=== PATIENT | female | born 1985 | race Caucasian/White ===

== ENCOUNTER 2023-08-12 11:49 | Day surgery (SDC) | payer OTHER ==
[2023-08-12 12:21] VITALS: BMI 36.2
[2023-08-12] MEDS ORDERED: hydrALAZINE 20 MG/ML VIAL SLOW IVP PRN (12:59)
[2023-08-12] MEDS ORDERED: Lactated Ringer's 1,000 ML IV SCH (13:00)
[2023-08-12] MEDS ORDERED: Ondansetron PF 4 MG/2 ML Vial IVP SCH (13:15)
[2023-08-12 13:47] LABS: Bilirubin Neg (Negative); Blood, Urine Negative (Negative); Clarity Clear (Clear); Glucose, Urine (Dipstick) Normal (Negative); Ketone, Urine Negative (Negative); Leukocyte Negative (Negative); Nitrite Negative (Negative); Protein, Urine (Dipstick) 15 mg/dl (Neg-Trace); Specific Gravity, Urine 1.015 (1.005-1.030); Urobilinogen Normal mg/dL (Less than 2)
[2023-08-12 13:59] LABS: Bacteria/HPF 3+ HPF (None Seen); CAUTI Indications for Culture Pregnancy; RBC/HPF 0-3 HPF (0-3); Sperm/HPF Rare HPF (None Seen)
[2023-08-12 14:03] LABS: Urine Culture Reflex Yes Yes
[2023-08-12 14:09] LABS: #Basophils 0.1 10x3/uL (0.0-0.2); #Eosinphils 0.2 10x3/uL (0.0-0.5); #Monocytes 0.5 10x3/uL (0.0-1.1); #Neutrophils 12.7 10x3/uL (1.5-8.4); %Basophils 0.4 % (0.0-2.0); %Lymphocytes 15.9 % (18.0-47.0); %Monocytes 3.2 % (0.0-10.0); %Neutrophils 78.4 % (40.0-75.0); Hematocrit 39.2 % (34.9-44.5); Hemoglobin 13.1 g/dL (12.0-15.5); Mean Corpuscular HGB CONC 33.4 g/dL (32.0-36.0); Mean Corpuscular Volume 92.9 fl (81.6-98.3); Mean Platelet Volume 10.2 fl (7.4-10.4); Platelet Count 291 10x3/uL (150-450); RBC Distribution Width 13.2 % (11.5-14.5); Red Blood Cell (RBC) Count 4.22 10x6/uL (3.90-5.03); White Blood Cell (WBC) Count 16.1 10x3/uL (3.5-10.5)
[2023-08-12 14:16] LABS: ALT (SGPT) 10 U/L (8-55); AST (SGOT) 14 U/L (5-34); Albumin 3.3 g/dL (3.5-5.0); Alkaline Phosphatase 96 U/L (40-110); Anion Gap 13 mmol/L (10-20); BUN (Urea Nitrogen) 9 mg/dL (7.0-18.7); Bilirubin, Total 0.4 mg/dL (0.2-1.2); Calc. Creatinine Clearance 200 mL/min (70-130); Calcium 8.6 mg/dL (7.8-10.44); Carbon Dioxide 19 mmol/L (22-29); Chloride 105 mmol/L (98-107); Estimated GFR 110; Glucose 95 mg/dL (70-105); Potassium 3.6 mmol/L (3.5-5.1); Protein, Total 6.3 g/dL (6.0-8.3); Sodium 133 mmol/L (136-145)
== END 2023-08-12 17:01 | disposition home or self-care (01) ==
LOC: CSHLD/OP 11:49
PROVIDERS: ATTEND Obstetrics & Gynecology
DX: O99.353 Diseases of the nervous system complicating pregnancy, third trimester (principal); R42 Dizziness and giddiness; O21.2 Late vomiting of pregnancy; Z3A.34 34 weeks gestation of pregnancy; Z88.0 Allergy status to penicillin
CPT/HCPCS: 36415; 76819; 80053; 81001; 85025; 87086; J2405

== ENCOUNTER 2023-08-16 10:53 | Day surgery (SDC) | payer OTHER ==
[2023-08-16 12:25] VITALS: BMI 34.8
== END 2023-08-16 13:05 | disposition home or self-care (01) ==
LOC: CSHERS 10:53 → CSHLD/OP 11:57
PROVIDERS: ATTEND Obstetrics & Gynecology
DX: O47.03 False labor before 37 completed weeks of gestation, third trimester (principal); Z3A.35 35 weeks gestation of pregnancy; Z88.0 Allergy status to penicillin
CPT/HCPCS: 93005; 99282

== ENCOUNTER 2023-09-13 11:20 | Inpatient (IN) | payer OTHER ==
[2023-09-13 12:01] VITALS: BMI 33.9
[2023-09-13 12:31] LABS: Fetal Membranes Rupture No Membranes Rupture (No Rupture)
[2023-09-13] MEDS ORDERED: hydrALAZINE 20 MG/ML VIAL SLOW IVP PRN ×2 (13:42→21:04)
[2023-09-13] MEDS ORDERED: Bicitra 30 ML UDCUP PO PRN (13:42)
[2023-09-13] MEDS ORDERED: Ondansetron PF 4 MG/2 ML Vial IVP PRN ×4 (13:42→21:04)
[2023-09-13] MEDS ORDERED: Famotidine/PF 20 mg/2ml Vial SLOW IVP PRN (13:42)
[2023-09-13] MEDS ORDERED: Promethazine HCl 25 MG/ML VIAL IM PRN ×2 (13:42→16:33)
[2023-09-13] MEDS ORDERED: Oxytocin 30 units/NS 500 ML 500 ML IV SCH (13:45)
[2023-09-13] MEDS ORDERED: Lactated Ringer's 1,000 ML IV SCH (13:45)
[2023-09-13] MEDS ORDERED: SODIUM CHLORIDE IVPB SCH (14:00)
[2023-09-13] MEDS ORDERED: Clindamycin/D5W 900 MG in Premix 1 BAG IVPB SCH (14:00)
[2023-09-13] MEDS ORDERED: GENTAMICIN IVPB SCH (14:00)
[2023-09-13] MEDS ORDERED: ADMIXTURE FEE IVPB SCH (14:00)
[2023-09-13 14:12] LABS: Hematocrit 42.3 % (34.9-44.5); Hemoglobin 14.6 g/dL (12.0-15.5); Mean Corpuscular HGB CONC 34.5 g/dL (32.0-36.0); Mean Corpuscular Hemoglobin 31.5 pg (27.0-33.0); Mean Corpuscular Volume 91.4 fl (81.6-98.3); Mean Platelet Volume 11.1 fl (7.4-10.4); Platelet Count 293 10x3/uL (150-450); RBC Distribution Width 12.7 % (11.5-14.5); Red Blood Cell (RBC) Count 4.63 10x6/uL (3.90-5.03); White Blood Cell (WBC) Count 14.1 10x3/uL (3.5-10.5)
[2023-09-13 14:34] LABS: Syphilis Antibody Nonreactive (Nonreactive); Syphilis Antibody Index 0.09 S/CO (<1.00 Non-Reactive)
[2023-09-13 14:35] LABS: HBSAg Index 0.19 S/CO (0-0.99); Hep B Surf Ag - L&D Non-Reactive S/CO (NonReactive)
[2023-09-13] MEDS ORDERED: Ondansetron PF 4 MG/2 ML Vial ONE (14:36)
[2023-09-13] MEDS ORDERED: Morphine PF 10 MG/10 ML VIAL ONE (14:36)
[2023-09-13] MEDS ORDERED: Oxytocin 10 UNITS/ML VIAL ONE ×2 (14:36→15:08)
[2023-09-13] MEDS ORDERED: fentaNYL 50 mcg/mL 1 mL Vial ONE (14:37)
[2023-09-13] MEDS ORDERED: PHENYLEPHRINE-NS 100 MCG/ML 10 ML SYRINGE ONE (15:04)
[2023-09-13] MEDS ORDERED: Phenylephrine 10 MG/ML VIAL ONE (15:29)
[2023-09-13] MEDS ORDERED: Erythromycin Base 0.5% Oint 1 GM TUBE ONE (15:37)
[2023-09-13] MEDS ORDERED: Phytonadione Neonatal 1 MG/0.5 ML AMP ONE (15:37)
[2023-09-13] MEDS ORDERED: Hepatitis B Vaccine 10 MCG/0.5 ML SYR ONE (15:37)
[2023-09-13] MEDS ORDERED: diphenhydrAMINE 50 MG/ML VIAL IVP PRN (16:33)
[2023-09-13] MEDS ORDERED: Meperidine HCl/PF 25 MG/ML VIAL SLOW IVP PRN (16:33)
[2023-09-13] MEDS ORDERED: Naloxone HCl 0.4 mg/ml Vial IV PRN (16:33)
[2023-09-13] MEDS ORDERED: Promethazine HCl 25 MG SUPP PR PRN (16:33)
[2023-09-13] MEDS ORDERED: Moisturizing Cream (Eucerin) 113 GM JAR TOP PRN (16:33)
[2023-09-13] MEDS ORDERED: Naloxone HCl 0.4 mg/ml Vial IVP PRN ×2 (16:33)
[2023-09-13] MEDS ORDERED: fentaNYL 50 mcg/mL 1 mL Vial SLOW IVP PRN (16:33)
[2023-09-13] MEDS ORDERED: Ketorolac Tromethamine 30 MG/ML VIAL IVP SCH (16:45)
[2023-09-13] MEDS ORDERED: Communication Order-Pharmacy FS SCH (16:45)
[2023-09-13] MEDS: Ketorolac Tromethamine 30 MG/ML VIAL IVP PRN (17:42)
[2023-09-13] MEDS ORDERED: levETIRAcetam 500 MG TAB PO SCH (18:00)
[2023-09-13] MEDS ORDERED: Lacosamide 50 mg Tablet PO SCH (21:00)
[2023-09-13] MEDS ORDERED: Boostrix 0.5 ML (Tdap) VIAL (>/=7 yrs of age) IM ONE (21:04)
[2023-09-13] MEDS ORDERED: Bisacodyl 10 MG SUPP PR PRN (21:04)
[2023-09-13] MEDS ORDERED: Simethicone Chewable 80 MG TAB PO PRN (21:04)
[2023-09-13] MEDS ORDERED: Lanolin Ointment 7 GM TUBE TOP PRN (21:04)
[2023-09-13] MEDS ORDERED: diphenhydrAMINE 25 MG CAP PO PRN (21:04)
[2023-09-13] MEDS ORDERED: Ferrous Sulfate 325 MG TAB PO SCH (21:15)
[2023-09-13] MEDS ORDERED: Docusate 100 MG CAP PO SCH (21:15)
[2023-09-14] MEDS: Ketorolac Tromethamine 30 MG/ML VIAL IVP PRN ×3 (01:12→13:23)
[2023-09-14 04:31] LABS: Hematocrit 32.2 % (34.9-44.5); Hemoglobin 11.1 g/dL (12.0-15.5); Mean Corpuscular HGB CONC 34.5 g/dL (32.0-36.0); Mean Corpuscular Volume 92.8 fl (81.6-98.3); Mean Platelet Volume 10.9 fl (7.4-10.4); Platelet Count 230 10x3/uL (150-450); RBC Distribution Width 12.6 % (11.5-14.5); Red Blood Cell (RBC) Count 3.47 10x6/uL (3.90-5.03); White Blood Cell (WBC) Count 14.6 10x3/uL (3.5-10.5)
[2023-09-14] MEDS ORDERED: HYDROcodone/Acetaminophen 5/325 mg Tablet PO PRN (04:45)
[2023-09-14] MEDS: Ferrous Sulfate 325 MG TAB PO SCH ×2 (07:41→20:30)
[2023-09-14] MEDS ORDERED: Lacosamide 50 mg Tablet PO SCH (09:00)
[2023-09-14] MEDS: HYDROcodone/Acetaminophen 5/325 mg Tablet PO PRN ×3 (10:17→20:30)
[2023-09-14] MEDS: Docusate 100 MG CAP PO SCH ×2 (10:17→20:30)
[2023-09-14] MEDS: Prenatal Vitamin 1 TAB PO SCH (10:17)
[2023-09-14] MEDS ORDERED: levETIRAcetam 500 MG TAB PO SCH (11:00)
[2023-09-14] MEDS: Ibuprofen 800 MG TAB PO SCH (21:01)
[2023-09-14] MEDS: levETIRAcetam 500 MG TAB PO SCH (21:01)
[2023-09-15] MEDS: HYDROcodone/Acetaminophen 5/325 mg Tablet PO PRN ×3 (02:35→13:50)
[2023-09-15] MEDS: Ibuprofen 800 MG TAB PO SCH ×2 (05:30→13:51)
[2023-09-15] MEDS: levETIRAcetam 500 MG TAB PO SCH (08:17)
[2023-09-15] MEDS: Prenatal Vitamin 1 TAB PO SCH (08:17)
[2023-09-15] MEDS: Docusate 100 MG CAP PO SCH (08:17)
[2023-09-15] MEDS: Ferrous Sulfate 325 MG TAB PO SCH (09:28)
[2023-09-15 11:48] VITALS: BP 122/67; TEMP 98.6
== END 2023-09-15 14:45 | disposition home or self-care (01) | DRG 785 ==
LOC: CSHLD/OP 11:20 → CSHLD 13:45 → CSHPP 18:33
PROVIDERS: ADMIT Obstetrics & Gynecology; ATTEND Obstetrics & Gynecology
PROC: 10D00Z1 Extraction of Products of Conception, Low, Open Approach (ICD-10-PCS; principal; 2023-09-13)
PROC: 0UT70ZZ Resection of Bilateral Fallopian Tubes, Open Approach (ICD-10-PCS; 2023-09-13)
DX: O34.211 Maternal care for low transverse scar from previous cesarean delivery (principal); Z3A.39 39 weeks gestation of pregnancy; Z37.0 Single live birth; Z98.890 Other specified postprocedural states; Z88.0 Allergy status to penicillin; O99.824 Streptococcus B carrier state complicating childbirth; O34.03 Maternal care for unspecified congenital malformation of uterus, third trimester; Q51.28 Other and unspecified doubling of uterus; Q51.4 Unicornate uterus; Z85.528 Personal history of other malignant neoplasm of kidney; Q50.6 Other congenital malformations of fallopian tube and broad ligament
CPT/HCPCS: 36415; 51702; 84112; 85027; 86780; 86850; 86900; 86901; 87340; 88302; 99285; J1580; J1885; J2274; J2370; J2405; J2590; J3010; J3490; J7120; S0028